=== PATIENT | male | born 1985 | race American Indian/Alaskan Native ===

== ENCOUNTER 2019-03-16 16:37 | Emergency (ER) | payer SELFPAY ==
--- NOTE | 2019-03-16 17:12 | Event Note ---
ED Screening Note Date of service: 03/16/19 Time: 17:07 ED Screening Note: 33 y/o male comes in for having a feeling that his right side of face is weak times 4 days. No other weakness. This initial assessment/diagnostic orders/clinical plan/treatment(s) is/are subject to change based on patients health status, clinical progression and re- assessment by fellow clinical providers in the ED. Further treatment and workup at subsequent clinical providers discretion. Patient/guardian urged not to elope from the ED as their condition may be serious if not clinically assessed and managed. Initial orders include:
[2019-03-16 17:15] VITALS: BP 152/99
--- NOTE | 2019-03-16 17:16 | Emergency Department Report ---
ED Neuro Deficit HPI - General Chief Complaint: Neuro Symptoms/Deficit Stated Complaint: RT SIDE FACE TINGLE Time Seen by Provider: 03/16/19 17:06 Source: patient Mode of arrival: Ambulatory Limitations: No Limitations - History of Present Illness Initial Comments: 33 y/o male comes in for having a feeling that his right side of face is weak times 4 days. No other weakness. Onset/Timin -: days(s) Location: right face Presenting Symptoms: Present: Facial Droop/Numbness History of same: No On Anticoagulants: No Context: sudden onset Associated Symptoms: denies: confusion, chest pain, fever/chills, headaches, nausea/vomiting, vertigo, seizures, shortness of breath, weakness Treatments Prior to Arrival: none - Related Data Home Medications: Previous Rx's Medication Instructions Recorded Last Taken Type Albuterol Sulfate [Ventolin HFA] 2 puff IH Q4H PRN #1 hfa.aer.ad 07/28/13 Unknown Rx Loratadine (Nf) [Claritin] 10 mg PO DAILY #30 tablet 07/28/13 Unknown Rx predniSONE [Deltasone] 50 mg PO QDAY #5 tab 07/28/13 Unknown Rx Acyclovir 400 mg PO QID #20 tablet 03/16/19 Unknown Rx predniSONE [Deltasone] 50 mg PO QDAY #7 tablet 03/16/19 Unknown Rx Allergies/Adverse Reactions: Allergies Allergy/AdvReac Type Severity Reaction Status Date / Time No Known Allergies Allergy Unverified 07/28/13 17:27 ED Review of Systems ROS: Stated complaint: RT SIDE FACE TINGLE Other details as noted in HPI Comment: All other systems reviewed and negative ED Past Medical Hx - Past Medical History Hx Asthma: Yes - Surgical History Past Surgical History?: No - Social History Smoking Status: Never Smoker Substance Use Type: Alcohol - Medications Home Medications: Home Medications Medication Instructions Recorded Confirmed Last Taken Type Albuterol Sulfate [Ventolin HFA] 2 puff IH Q4H PRN #1 hfa.aer.ad 07/28/13 Unknown Rx Loratadine (Nf) [Claritin] 10 mg PO DAILY #30 tablet 07/28/13 Unknown Rx predniSONE [Deltasone] 50 mg PO QDAY #5 tab 07/28/13 Unknown Rx Acyclovir 400 mg PO QID #20 tablet 03/16/19 Unknown Rx predniSONE [Deltasone] 50 mg PO QDAY #7 tablet 03/16/19 Unknown Rx ED Neuro Physical Exam - General Limitations: No Limitations General appearance: alert, in no apparent distress Suspected Stroke: No - Head Head exam: Present: atraumatic, normocephalic - Eye Eye exam: Present: other (right eye weakness ) - Expanded Eye Exam Expanded Eyelids: Normal Inspection: Left Pupils: Regular, Round: Bilateral, Reactive: Bilateral Sclera/Conjunctival: Normal Inspection: Bilateral, Injection: Bilateral, Hemorrhage: Bilateral, Foreign Body: Bilateral, Exudate: Bilateral - ENT ENT exam: Present: mucous membranes moist, normal external ear exam - Neck Neck exam: Present: normal inspection, full ROM ED Course Vital Signs 03/16/19 17:05 Temperature 98.9 F Pulse Rate 98 H Respiratory 18 Rate Blood Pressure 171/110 O2 Sat by Pulse 98 Oximetry Critical care attestation.: If time is entered above; I have spent that time in minutes in the direct care of this critically ill patient, excluding procedure time. ED Disposition Clinical Impression: Bejarano's palsy Disposition: DC- TO HOME OR SELFCARE Is pt being admited?: No Does the pt Need Aspirin: No Condition: Stable Instructions: Bejarano Palsy (ED) Additional Instructions: Complete meds as prescribed. Follow up with neuro as needed. Prescriptions: Acyclovir 400 mg PO QID #20 tablet predniSONE [Deltasone] 50 mg PO QDAY #7 tablet Referrals: JIMI VERDUZCO MD [Referring] - 3-5 Days
== END 2019-03-16 17:43 | disposition home or self-care (01) ==
LOC: ED 16:37
DX: G51.0 Bell's palsy (principal); J45.909 Unspecified asthma, uncomplicated; F10.10 Alcohol abuse, uncomplicated; Z79.899 Other long term (current) drug therapy
CPT/HCPCS: 99282